=== PATIENT | female | born 1945 | race Caucasian/White ===

== ENCOUNTER → 2016-05-21 | Outpatient (CLI) | payer MEDICARE ==
--- NOTE | 2016-05-21 15:42 | NM ---
EXAMINATION TYPE: NM bone scan whole body DATE OF EXAM: 05/21/2016 2:45 PM COMPARISON: NONE HISTORY: Back pain Delayed whole-body scanning was performed following the injection of 25.9 mCi Tc 99m MDP. Images acq uired 3.5 hours post injection. FINDINGS: There is increased uptake in the MTP joints of both feet. There is some increased uptake at the base of both thumbs. There is minimal increased uptake in the left calcaneus. There is increased uptake in the region of the left maxillary sinus. IMPRESSION: DEGENERATIVE UPTAKE DESCRIBED.
== END | disposition home or self-care (01) ==
LOC: RADNMMAIN 10:24
DX: M47.817 Spondylosis without myelopathy or radiculopathy, lumbosacral region (principal)
CPT/HCPCS: 78306; A9503

== ENCOUNTER → 2017-11-18 | Outpatient (CLI) | payer MEDICARE ==
--- NOTE | 2017-11-18 10:26 | MR ---
EXAMINATION TYPE: MR knee LT wo con DATE OF EXAM: 11/18/2017 COMPARISON: Outside left knee x-ray May 01, 2017 HISTORY: Left knee pain TECHNIQUE: Multiplanar, multisequence images of the knee is performed without IV contrast. FINDINGS: MEDIAL MENISCUS: Anterior horn is intact without tear. Posterior horn shows truncation with irregular and oblique increased signal extending to inferior articular surface seen best sagittal image 24 con sistent with full-thickness tear. Medial extrusion meniscus noted on coronal images. LATERAL MENISCUS: Anterior and posterior horns are intact without tear. CRUCIATE LIGAMENTS: The anterior and posterior cruciate ligaments are intact and unremarkable. COLLATERAL LIGAMENTS: The medial collateral ligament and lateral collateral ligament complex are inta ct and unremarkable. EXTENSOR MECHANISM: Visualized quadriceps and patellar tendons are intact. EFFUSION: There is moderate size suprapatellar joint effusion. POPLITEAL CYST: No popliteal/razo cyst. TRICOMPARTMENT SPACES: Fairly moderate joint space loss patellofemoral compartment is seen without si gnificant spurring. There is mild joint space loss and spurring lateral and medial tibiofemoral abhinav rtments. CARTILAGE: Chondromalacia patella is present with thinning of articular cartilage along superior aspe ct of the patellar pole. Some cartilaginous loss medial tibiofemoral compartment is noted. No full-th ickness cartilaginous loss is seen. BONE MARROW SIGNAL: There is focal 4 mm lesion posterior aspect distal lateral femoral condyle of T1 and T2 hypointensity with halo T2 hyperintensity of uncertain etiology though favored benign with mariangel e surrounding reactive edema. Subtle sclerotic focus noted on corresponding x-ray. OTHER: No additional significant abnormality is appreciated. IMPRESSION: 1. Moderate suprapatellar joint effusion. 2. Moderate patellofemoral osteoarthritic changes with chondromalacia patella. More mild degenerative changes medial greater than lateral tibiofemoral compartments noted. 3. Full-thickness tear posterior horn of medial meniscus. 4. Nonspecific 4 mm sclerotic focus posterior aspect distal lateral femoral condyle with some surroun ding osseous edema.
== END | disposition home or self-care (01) ==
LOC: RADMRIMAIN 09:27
PROVIDERS: ATTEND Orthopaedic Surgery
DX: S83.242A Other tear of medial meniscus, current injury, left knee, initial encounter (principal); M17.12 Unilateral primary osteoarthritis, left knee; M22.42 Chondromalacia patellae, left knee

== ENCOUNTER 2017-12-26 07:09 | Day surgery (SDC) | payer MEDICARE ==
[2017-12-20 11:24] VITALS: BMI 27.6
--- NOTE | 2017-12-25 17:44 | HP ---
HISTORY AND PHYSICAL DATE OF SURGERY: 12/26/2017. Chani Alfonso is a 72-year-old patient seen with progressive left knee pain. Treatment options were discussed. She elected to proceed with arthroscopy. Consent was obtained. PAST MEDICAL HISTORY: Asthma, gastroesophageal reflux disease. PAST SURGICAL HISTORY: Left knee arthroscopy, spinal surgery. DAILY MEDICATIONS: 1. ProAir. 2. Valium. 3. Pepcid. ALLERGIES: Are IODINE, TYLENOL NO. 4, IBUPROFEN, MOTRIN, LISINOPRIL, LOSARTAN. SOCIAL HISTORY: Patient denies tobacco use. PHYSICAL EVALUATION OF THE LEFT KNEE: Range of motion 0-120 degrees. Mild effusion. Tenderness along the medial and lateral joint lines. Positive lateral Danika's. Ligaments stable. Hip rotation without pain. Distal neurovascular intact. Radiographs of the left knee revealed mild medial and moderate patellofemoral compartment osteoarthritis. An MRI of the left knee revealed medial meniscal tear, osteoarthritic changes and joint effusion. IMPRESSION: 1. Internal derangement of the left knee with medial meniscal tear. 2. Asthma. 3. Gastroesophageal reflux disease. PLAN: Left knee arthroscopy with partial meniscectomy and debridement. MMODL / IJN: [id number] /
[~2017-12-26 07:09] MED LIST: DEXAMETHASONE SOD PHOSPHATE 10 MG/ML 1 ML VIAL IV ONE; LACTATED RINGERS 1,000 ML IV SCH; LIDOCAINE 1% 20 ML VIAL (10MG/ML) FOR IV START INTRADERMA PRN; MIDAZOLAM 2 MG/2 ML VIAL IV PRN; VANCOMYCIN 1,250 MG in SODIUM CHLORIDE 0.9% 250 ML IVPB ONE; fentaNYL (PF) 50 MCG/ML 2 ML AMP IV PRN
[2017-12-26] MEDS: ONDANSETRON 4 MG/2 ML VIAL IVP ONE ×2 (07:50→09:41)
[2017-12-26] MEDS ORDERED: CLINDAMYCIN 600 MG in DEXTROSE 5% IN WATER 50 ML IVPB STA ×2 (08:23)
[2017-12-26 08:24] LABS: Glucose,Whole Blood 97 mg/dL (75-99)
[2017-12-26] MEDS ORDERED: LIDOCAINE 1% INJ 10MG/ML (20 ML MDV) ONE (08:34)
[2017-12-26] MEDS ORDERED: PROPOFOL 10 MG/ML 20 ML VIAL IV ONE (08:34)
[2017-12-26] MEDS ORDERED: BUPIVACAIN-EPI 0.25%-1:200,000 30 ML VIAL INTRAARTIC ONE (08:34)
[2017-12-26] MEDS ORDERED: MIDAZOLAM 2 MG/2 ML VIAL ONE (08:34)
[2017-12-26] MEDS ORDERED: SUCCINYLCHOLINE CHLORIDE 100 MG/5 ML SYR IV ONE (08:34)
[2017-12-26] MEDS ORDERED: fentaNYL (PF) 50 MCG/ML 2 ML AMP ONE (08:34)
[2017-12-26] MEDS ORDERED: ePHEDrine SULFATE/0.9% NACL/PF 50 MG/5 ML SYRINGE IV ONE (08:34)
[2017-12-26 09:25] VITALS: TEMP 98
--- NOTE | 2017-12-26 09:25 | P.OP ---
Date of Procedure: 12/26/17 Preoperative Diagnosis: Internal derangement left knee Postoperative Diagnosis: 1. Tear medial and lateral meniscus left knee 2. Grade 3 chondromalacia patella left knee 3. Grade 2 chondromalacia medial femoral condyle left knee 4. Reactive synovitis medial and suprapatellar compartments left knee Procedure(s) Performed: 1. Arthroscopic partial medial and lateral meniscectomy left knee 2. Arthroscopic chondroplasty medial femoral condyle left knee 3. Arthroscopic chondroplasty patella left knee 4. Arthroscopic partial synovectomy medial and suprapatellar compartments left knee Anesthesia: VINEETA, local Surgeon: Gary Quinonez Estimated Blood Loss (ml): 8 Pathology: none sent Condition: stable Disposition: PACU Indications for Procedure: 72-year-old patient seen with progressive left knee pain. After having treatment options discussed, she elected to proceed with arthroscopy. Operative Findings: See description of procedure Description of Procedure: Patient was taken to the operative suite. Patient underwent a general anesthetic by the department of anesthesia. Patient was given preoperative antibiotics. The left lower extremity was placed in a well-padded arthroscopic leg montero. The left leg was prepped and draped in the normal sterile orthopedic fashion. A lateral parapatellar and suprapatellar incision was made. Trochars were inserted. Arthroscopy was initiated. Suprapatellar pouch revealed diffuse thick reactive synovitis. The patellofemoral joint appeared to articulate congruently. There was grade 3 chondromalacia of the patella as well as the femoral sulcus with some osteochondral tears present. The scope was guided into the medial gutter. No loose bodies or plica were identified. The scope was then guided into the medial compartment. A medial parapatellar incision was made. Trocar inserted followed by probe. There was a radial tear posterior horn medial meniscus. There were grade 2 chondromalacia changes of the medial femoral condyle with some osteochondral tears present. There was some reactive synovitis anteriorly. I performed a partial medial meniscectomy down to stable tissue. I performed a chondroplasty of the medial femoral condyle down to stable tissue. I performed a partial synovectomy decompressing the reactive synovitis. The residual meniscus was stable. The residual osteochondral surface was stable. There was good decompression of synovitis. Scope and probe were then guided into the intercondylar notch. Cruciates were identified, probed and found to be table. The scope and probe were then guided into lateral compartment. There were some radial tears involving the medial aspect of the posterior horn of the lateral meniscus. There were mild grade 1 chondromalacia changes. There was no reactive synovitis. There were no loose bodies. I performed a partial lateral meniscectomy down to stable tissue. The residual meniscus was stable. The scope was in guided back into the suprapatellar compartment. I introduced a motorized shaver into the super patellar compartment. I performed a chondroplasty of both the patella and femoral sulcus getting down to stable osteochondral tissue. I performed a partial synovectomy. The residual osteochondral surface was found to be stable. There was good decompression of synovitis. Instruments were now removed from the joint. The joint was infiltrated with .25% Marcaine. Steri- Strips were applied to the portal sites. Sterile dressings were applied. The patient was placed into a KARLA hose. No tourniquet was utilized. The patient was awakened, transferred to a bed and taken to recovery stable satisfactory condition.
[2017-12-26] MEDS: HYDROmorphone 1 MG/ML 1 ML SYRINGE IVP ONE ×2 (09:40→09:50)
[2017-12-26 10:48] VITALS: PULSE 62; RESP 18
[2017-12-26] MEDS ORDERED: Acetaminophen-Codeine 300-30mg TAB PO ONE (10:52)
[2017-12-26 11:43] VITALS: BP 120/67
== END 2017-12-26 11:46 | disposition home or self-care (01) ==
LOC: OR 07:09
PROVIDERS: ATTEND Orthopaedic Surgery
DX: S83.242A Other tear of medial meniscus, current injury, left knee, initial encounter (principal); S83.282A Other tear of lateral meniscus, current injury, left knee, initial encounter; X58.XXXA Exposure to other specified factors, initial encounter; M22.42 Chondromalacia patellae, left knee; M65.88 Other synovitis and tenosynovitis, other site; F41.9 Anxiety disorder, unspecified; K21.9 Gastro-esophageal reflux disease without esophagitis; Z79.82 Long term (current) use of aspirin; Z79.899 Other long term (current) drug therapy; Z88.6 Allergy status to analgesic agent; Z88.1 Allergy status to other antibiotic agents; Z91.02 Food additives allergy status; Z88.5 Allergy status to narcotic agent; Z88.0 Allergy status to penicillin; Z88.2 Allergy status to sulfonamides; Z91.048 Other nonmedicinal substance allergy status; Z91.013 Allergy to seafood; J45.909 Unspecified asthma, uncomplicated
CPT/HCPCS: 29880; J2250; J1100; J2405; J2001; J3010; J1170; J0330; J2704

== ENCOUNTER 2020-02-04 07:36 | Day surgery (SDC) | payer MEDICARE ==
--- NOTE | 2020-02-03 18:29 | HP ---
HISTORY AND PHYSICAL DATE OF SURGERY: 02/04/2020 Chani Alfonso is a 74-year-old lady seen with progressive left knee pain, failing conservative measures. We discussed options. She elected to proceed with left knee arthroscopy. Consent was obtained. PAST MEDICAL HISTORY: Asthma. PAST SURGICAL HISTORY: Left knee arthroscopy, spine surgery. DAILY MEDICATIONS: ProAir, Tylenol, Valium. ALLERGIES: IODINE, RED DYE, TYLENOL 4, IBUPROFEN, LISINOPRIL, LOSARTAN. SOCIAL HISTORY: She denies tobacco use. PHYSICAL EVALUATION OF THE LEFT KNEE: Her range of motion is negative 2/3 to 120. There is a mild effusion present. Tenderness along the medial joint line. Positive medial Danika's. There is crepitus along the medial and patellofemoral compartments with range of motion. There is some pain with patellofemoral compression. Her ligaments are stable. Hip rotation is without pain. Distal neurovascular exam is intact. RADIOGRAPHS: Left knee radiographs reveal osteoarthritic changes. MRI of the left knee revealed a medial meniscal tear as well as osteoarthritic changes. IMPRESSION: 1. Internal derangement of the left knee with meniscal tear. 2. Left knee osteoarthritis. 3. Asthma. PLAN: Left knee arthroscopy with partial meniscectomy, partial synovectomy and debridement. MMODL / IJN: [id number] /
[~2020-02-04 07:36] MED LIST changes: +HYDROmorphone 0.5 MG/0.5 ML SYRINGE IVP PRN; -LIDOCAINE 1% 20 ML VIAL (10MG/ML) FOR IV START INTRADERMA PRN; -MIDAZOLAM 2 MG/2 ML VIAL IV PRN; +ONDANSETRON 4 MG/2 ML VIAL IVP ONE; +VANCOMYCIN 1,000 MG in SODIUM CHLORIDE 0.9% 250 ML IVPB ONE; -VANCOMYCIN 1,250 MG in SODIUM CHLORIDE 0.9% 250 ML IVPB ONE; -fentaNYL (PF) 50 MCG/ML 2 ML AMP IV PRN
[2020-02-04] MEDS ORDERED: LIDOCAINE 1% (10MG/ML) FOR IV START INTRADERMA ONE (08:19)
[2020-02-04] MEDS ORDERED: diphenhydrAMINE 50 MG/ML 1 ML VIAL ONE (08:24)
[2020-02-04] MEDS ORDERED: diphenhydrAMINE 50 MG/ML 1 ML VIAL IVP ONE (08:31)
[2020-02-04] MEDS ORDERED: BUPIVACAINE (PF) 0.25% 30 ML VIAL SQ ONE ×2 (09:22→10:03)
[2020-02-04] MEDS ORDERED: DEXAMETHASONE SOD PHOSPHATE 10 MG/ML 1 ML VIAL ONE (09:23)
[2020-02-04] MEDS ORDERED: fentaNYL (PF) 50 MCG/ML 2 ML AMP ONE (09:23)
[2020-02-04] MEDS ORDERED: ROCURONIUM 10 MG/ML (10 ML VIAL) IV ONE (09:23)
[2020-02-04] MEDS ORDERED: MIDAZOLAM 2 MG/2 ML VIAL ONE (09:23)
[2020-02-04] MEDS ORDERED: KETOROLAC 15 MG/ML 1 ML VIAL ONE (09:23)
[2020-02-04] MEDS ORDERED: NEOSTIGMINE 1 MG/ML 10 ML VIAL ONE (09:23)
[2020-02-04] MEDS ORDERED: LIDOCAINE 1% INJ 10MG/ML (20 ML MDV) ONE (09:23)
[2020-02-04] MEDS ORDERED: PROPOFOL 10 MG/ML 50 ML VIAL IV ONE (09:23)
[2020-02-04] MEDS ORDERED: GLYCOPYRROLATE 0.2 MG/ML 2 ML VIAL ONE (09:23)
--- NOTE | 2020-02-04 10:25 | P.OP ---
Date of Procedure: 02/04/20 Preoperative Diagnosis: Internal derangement left knee Postoperative Diagnosis: 1. Tear medial meniscus left knee 2. Grade 3/4 chondromalacia medial femoral condyle left knee 3. Grade 3/4 chondromalacia patellofemoral joint left knee 4. Reactive synovitis medial, lateral and suprapatellar compartments left knee Procedure(s) Performed: 1. Arthroscopic partial medial meniscectomy left knee 2. Arthroscopic chondroplasty medial femoral condyle left knee 3. Arthroscopic chondroplasty patellofemoral joint left knee 4. Arthroscopic partial synovectomy medial, lateral and suprapatellar compartments left knee Anesthesia: JOCELYN, local Surgeon: Gary Quinonez Estimated Blood Loss (ml): 7 Pathology: none sent Condition: stable Disposition: PACU Indications for Procedure: 74-year-old patient seen with progressive left knee pain. After treatment options were discussed, she elected to proceed with arthroscopy. Operative Findings: See description of procedure Description of Procedure: Patient was taken to the operative suite. Patient underwent a general anesthetic by the department of anesthesia. Patient was given preoperative antibiotics. The left lower extremity was placed in a well-padded arthroscopic leg montero. The left leg was prepped and draped in the normal sterile orthopedic fashion. A lateral parapatellar and suprapatellar incision was made. Trochars were inserted. Arthroscopy was initiated. Suprapatellar pouch revealed diffuse thick reactive synovitis. The patellofemoral joint appeared to articulate congruently. There was grade 3/4 chondromalacia of the patellofemoral joint with some diffuse osteochondral flap tears present. The scope was guided into the medial gutter. Loose bodies or plica were identified. The scope was then guided into the medial compartment. A medial parapatellar incision was made. Trocar inserted followed by probe. There was a tear involving the posterior horn of the medial meniscus. There were grade 3/4 chondromalacia changes of the medial femoral condyle with some diffuse osteochondral flap tears present. There was thick reactive synovitis anteriorly. I performed a partial medial meniscectomy. I performed a chondroplasty of the medial femoral condyle. I performed a partial synovectomy decompressing the thick reactive synovitis. The residual meniscus was stable. The residual osteochondral surface was stable. There was good decompression of the synovitis. Scope and probe were then guided into the intercondylar notch. Cruciates were identified, probed and found to be stable. The scope and probe were then guided into lateral compartment. Lateral meniscus was probed and found to be stable. There were grade 1 chondromalacia changes present. There was thick reactive synovitis anteriorly. I introduced a motorized shaver and performed a partial synovectomy decompressing the reactive synovitis. The shaver was removed. There was good decompression of the synovitis. The scope was in guided back into the suprapatellar compartment. I introduced the motorized shaver into the suprapatellar compartment. I debrided some piecemeal fragments of meniscus I encountered. I performed a partial synovectomy decompressing the reactive synovitis. The shaver was removed. There was good decompression of synovitis. I now took one more look on the entire knee, no residual debris. Instruments were now removed from the joint. The joint was infiltrated with .25% Marcaine. Steri-Strips were applied to the portal sites. Sterile dressings were applied. The patient was placed into a KARLA hose. No tourniquet was utilized. The patient was awakened, transferred to a bed and taken to recovery stable satisfactory condition.
[2020-02-04 10:31] VITALS: TEMP 98
[2020-02-04 10:37] VITALS: RESP 16
[2020-02-04] MEDS: HYDROmorphone 1 MG/ML 1 ML SYRINGE IVP ONE ×3 (10:44→11:16)
[2020-02-04 11:41] VITALS: BP 134/70; PULSE 54
[2020-02-04] MEDS ORDERED: Acetaminophen-Codeine 300-30mg TAB ONE (11:49)
[2020-02-04] MEDS ORDERED: Acetaminophen-Codeine 300-30mg TAB PO ONE (11:50)
== END 2020-02-04 12:36 | disposition home or self-care (01) ==
LOC: OR 07:36
PROVIDERS: ATTEND Orthopaedic Surgery
DX: M23.204 Derangement of unspecified medial meniscus due to old tear or injury, left knee (principal); M22.42 Chondromalacia patellae, left knee; M65.862 Other synovitis and tenosynovitis, left lower leg; M17.12 Unilateral primary osteoarthritis, left knee; J45.909 Unspecified asthma, uncomplicated; Z79.899 Other long term (current) drug therapy; Z98.890 Other specified postprocedural states; Z91.09 Other allergy status, other than to drugs and biological substances; Z91.048 Other nonmedicinal substance allergy status; Z88.6 Allergy status to analgesic agent; Z88.8 Allergy status to other drugs, medicaments and biological substances; I10 Essential (primary) hypertension; E78.5 Hyperlipidemia, unspecified; K21.9 Gastro-esophageal reflux disease without esophagitis
CPT/HCPCS: 29881; J2250; J3370; J1200; J1100; J2710; J2405; J2001; J3010; J1170; J1885; J2704